=== PATIENT | male | born 1980 | race Caucasian/White ===

== ENCOUNTER → 2018-04-03 14:41 | Emergency (ER) | payer OTHER ==
[~2018-04-03 14:41] MED LIST: Ketorolac INJ* 30 MG/ML 1 ML VIAL IV PUSH ONE; NS 0.9% 1000 ML* 1,000 ML IV ONE
--- NOTE | 2018-04-03 14:53 | ED ---
GI/ HPI - HPI Summary HPI Summary: The pt is a 37 y/o male brought in by ambulance to [facility] c/o sudden onset flank pain since 3 hours [employer]. The pain rated 9/10 in severity radiates to the L lower back and groin. He reports a hx of nephrolithiasis 10-11years ago. He also reports expulsion of a small solid mass with urination today. EMS administered 100mcg Zofran and 4 mg Fentanyl IV en route to mild relief. Home Medications Medication Instructions Recorded Confirmed Type traZODone TAB* [Desyrel TAB*] 100 mg PO QPM 04/03/18 04/03/18 History - History of Current Complaint Chief Complaint: EDFlankPain Time Seen by Provider: 04/03/18 14:46 Stated Complaint: FLANK PAIN Hx Obtained From: Patient Onset/Duration: Started Hours Ago, Still Present Timing: Constant Severity: Severe Current Severity: Severe Pain Intensity: 9 Location of Pain: Flank - L Pain Radiates to: Back, Inguinal Aggravating Factor(s): Nothing Alleviating Factor(s): Medication - Fentanyl and Zofran - Allergy/Home Medications Allergies/Adverse Reactions: Allergies Allergy/AdvReac Type Severity Reaction Status Date / Time No Known Allergies Allergy Verified 04/03/18 14:47 Home Medications: Home Medications traZODone TAB* [Desyrel TAB*] 100 mg PO QPM 04/03/18 [History Confirmed 04/03/18 ] PMH/Surg Hx/FS Hx/Imm Hx Previously Healthy: No Endocrine/Hematology History: Denies: Hx Diabetes Cardiovascular History: Denies: Hx Hypercholesterolemia, Hx Hypertension Respiratory History: Denies: Hx Asthma History: Reports: Hx Kidney Stones - 10-11 years ago Sensory History: Denies: Hx Deafness - Cancer History Cancer Type, Location and Year: None reported - Surgical History Surgery Procedure, Year, and Place: None reported Infectious Disease History: No Infectious Disease History: Denies: Traveled Outside the [place] in Last 30 Days - Family History Known Family History: Negative: Cardiac Disease, Hypertension, Diabetes - Social History Occupation: Unemployed Lives: Alone Hx Substance Use: No Review of Systems Gastrointestinal: Other - Positive: L inguinal pain Positive: flank pain - L , other - Positive: expulsion of a solid mass with urination Musculoskeletal: Other - Lower back pain All Other Systems Reviewed And Are Negative: Yes Physical Exam - Summary Physical Exam Summary: Appearance: The patient is well-nourished in no acute distress and in no acute pain. Skin: The skin is warm and dry and skin color reflects adequate perfusion. HEENT: The head is normocephalic and atraumatic. The pupils are equal and reactive. The conjunctivae are clear and without drainage. Nares are patent and without drainage. Mouth reveals moist mucous membranes and the throat is without erythema and exudate. The external ears are intact. The ear canals are patent and without drainage. The tympanic membranes are intact. Neck: The neck is supple with full range of motion and non-tender. There are no carotid bruits. There is no neck vein distension. Respiratory: Chest is non-tender. Lungs are clear to auscultation and breath sounds are symmetrical and equal. Cardiovascular: Heart is regular rate and rhythm. There is no murmur or rub auscultated. There is no peripheral edema and pulses are symmetrical and equal. Abdomen: The abdomen is soft and non-tender. There are normal bowel sounds heard in all four quadrants and there is no organomegaly palpated. Musculoskeletal: There is no back tenderness noted. Extremities are non-tender with full range of motion. There is good capillary refill. There is no peripheral edema or calf tenderness elicited. Neurological: Patient is alert and oriented to person, place and time. The patient has symmetrical motor strength in all four extremities. Cranial nerves are grossly intact. Deep tendon reflexes are symmetrical and equal in all four extremities. Psychiatric: The patient has an appropriate affect and does not exhibit any anxiety or depression. Triage Information Reviewed: Yes Vital Signs On Initial Exam: Initial Vitals Temp Pulse Resp BP Pulse Ox 97.4 F 58 18 132/85 100 04/03/18 14:44 04/03/18 14:44 04/03/18 14:44 04/03/18 14:44 04/03/18 14:44 Vital Signs Reviewed: Yes Diagnostics - Vital Signs Vital Signs Temp Pulse Resp BP Pulse Ox 04/03/18 14:44 97.4 F 58 18 132/85 100 - Laboratory Result Diagrams: 04/03/18 15:05 04/03/18 15:05 Lab Statement: Any lab studies that have been ordered have been reviewed, and results considered in the medical decision making process. - CT Abd/Pel CT CT Interpretation Completed By: Radiologist Summary of CT Findings: IMPRESSION: 0.7 CM CALCULUS WAS OF THE DISTAL LEFT URETER WITH ASSOCIATED HYDRONEPHROSIS. The ED physician reviewed this radiology report. Re-Evaluation - Re-Evaluation First Eval Re-Evaluation Time: 17:45 Change: Improved GIGU Course/Dx - Course Course Of Treatment: Mr. Morales was nontoxic in appearance with normal vitals here. He was found to have a 7 mm left UVJ stone with hydronephrosis. His urine analysis was equivocal with a little bit of white blood cells and no bacteria. We do not have urology on-call this weekend and I'm going to try to get him through the weekend as an outpatient. He is given a prescription for Flomax, [place] and Cipro. He has no urology number and is willing to come back if he is not getting any better or if he is worsening. - Diagnoses Provider Diagnoses: Nephrolithiasis Discharge - Sign-Out/Discharge Documenting (check all that apply): Patient Departure - Dc - Discharge Plan Condition: Stable Disposition: HOME Prescriptions: Ciprofloxacin TAB* [Cipro Tab*] 500 mg PO BID #20 tab HYDROcodone/ACETAMIN 5-325 MG* [[place] 5-325 TAB*] 1 tab PO Q6H PRN #20 tab MDD 4 PRN Reason: Pain Tamsulosin CAP* [Flomax CAP*] 0.4 mg PO DAILY #7 cap Patient Education Materials: Kidney Stones (ED) Referrals: Cooper Topete MD [Medical Doctor] - () Additional Instructions: Follow up with Dr. Yoselyn MD (urologist ) next week. Continue to take Ibuprofen as needed. [facility] Address: [address] [place] [address] - Billing Disposition and Condition Condition: STABLE Disposition: Home - Attestation Statements Document Initiated by Scribe: Yes Documenting Scribe: Evon Cruz Provider For Whom [place] is Documenting (Include Credential): Dr. Salvador Menchaca MD Scribe Attestation: Evon Cid, scribed for Dr. Salvador Menchaca MD on 04/03/18 at 1855. Scribe Documentation Reviewed: Yes Provider Attestation: The documentation as recorded by the Evon villatoro accurately reflects the service I personally performed and the decisions made by me, Dr. Salvador Menchaca MD Status of Scribe Document: Viewed
[2018-04-03 15:18] LABS: ABS Basophils 0.1 10^3/ul (0-0.2); ABS Eosinophils 0 10^3/ul (0-0.6); ABS Nucleated RBC 0 10^3/ul; Eosinophil % 0.1 %; Hematocrit 42 % (42-52); Hemoglobin 13.7 g/dl (14.0-18.0); Lymphocyte % 5.6 %; Mean Corpuscular HGB Conc 33 g/dl (31-36); Mean Corpuscular Hemoglobin 30 pg (27-31); Mean Corpuscular Volume 91 fL (80-94); Mean Platelet Volume 8.2 fL (7.4-10.4); Nucleated Red Blood Cells % 0.1; Platelet Count 186 10^3/ul (150-450); Red Cell Distribution Width 14 % (10.5-15); White Blood Count 18.2 10^3/ul (3.5-10.8)
[2018-04-03 15:38] LABS: EGFR Non-African American 73.4 (>60)
[2018-04-03 17:09] LABS: Urine Appearance Cloudy; Urine Blood 3+ (Negative); Urine Color Amber; Urine Ketones Trace (Negative); Urine Protein 2+(100 mg/dL) (Negative); Urine Red Blood Cell 3+(>10/hpf) (Absent); Urine Specific Gravity 1.038 (1.010-1.030); Urine Urobilinogen Negative (Negative); Urine White Blood Cell 2+(11-20/hpf) (Absent)
[2018-04-03 18:09] VITALS: BP 136/74
== END | disposition home or self-care (01) ==
LOC: ED 14:41
DX: N13.2 Hydronephrosis with renal and ureteral calculous obstruction (principal)
CPT/HCPCS: 36415; 74176; 80053; 81003; 81015; 83605; 83690; 85025; 86140; 87086; 96361; 96374; 99282; J1885